=== PATIENT | female | born 2005 | race Caucasian/White ===

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

== ENCOUNTER 2024-11-04 10:11 | Emergency (ER) | payer MEDICAID ==
[~2024-11-04] VITALS: Ht 177.8 cm; Wt 63.6 kg
[~2024-11-04 10:11] MED LIST: PHEN-716 PO
[2024-11-04 10:18] VITALS: BP 102/60
--- NOTE | 2024-11-04 10:48 | Physician Documentation ---
History of Present Illness ~ Chief Complaint: Ankle pain Stated Complaint: L ANKLE PAIN Time Seen by MD: 10:24 Primary Medical Doctor: [facility] Source: patient Mode of Arrival: POV Exam Limitations: no limitations HPI 19-year-old female with complaints of left ankle pain after getting out of a lifted truck and twisting her left ankle. Patient does have pain and swelling to the ankle. Able to bear weight. Tetanus witin 5 years: Yes Medication Reconciliation Allergies: Coded Allergies: No Known Allergies (Unverified , 11/04/24) Scheduled Ibuprofen (Ibu), 1 TAB PO Q8H Phenazopyridine HCl (Pyridium), 1 TAB PO Q8H Past Medical History Past Medical History: No Pertinent History Past Surgical History: no surgical history Alcohol Use: None Drug Use: none Lives with: Family Lives In: Home Occupation: student Review of Systems All Other Systems at this time: Reviewed and Negative Physical Exam Vital Signs: RN Vital Signs have been reviewed: Yes, Temperature: 98.0, Source: Temporal, Heart Rate: 74, Respiratory Rate: 18, BP: 102/60, Pulse Oximetry: 98, Weight: 63.640 Physical Exam General: Alert, no apparent distress. Respiratory: Lungs clear, no respiratory distress. Chest: No accessory muscle use. Cardiovascular: Regular rate and rhythm, no murmurs. Extremities: Moderate swelling to the left ankle pain to the lateral malleolus no obvious deformity good pedal pulse. Neurologic: Oriented x4. Psychiatric: Normal mood and affect. Skin: Normal color, warm and dry. No edema, no ecchymosis. Progress Results/Orders Results/Orders Orders - FALLON GLOVER [employer]PUTER [employer]PERATIONS MANAGER Ankle, Complete(3vw Min) (11/04/24 10:22) Ortho Orders (11/04/24 ) Completed Orders - FALLON GLOVER [employer]PUT[employer]PERATIONS MANAGER Ankle, Complete(3vw Min) (11/04/24 10:22) Vital Signs 11/04/24 10:18 Temp 98.0 Pulse 74 Resp 18 B/P (MAP) 102/60 Pulse Ox 98 EKG/XRAY/CT/US/VASC/MRI Bone/Soft Tissue X-Ray (Ext.) : Additional Comment CLINICAL INDICATION: ankle pain TECHNIQUE: 3 radiographic views of the left ankle were obtained. Comparison: None FINDINGS/IMPRESSION: There is no evidence of acute fracture or dislocation. The visualized joint space is well maintained. The alignment is anatomical. There is no radiopaque foreign body. Medical Decision Making Findings X-ray to evaluate any osseous abnormality. Differentials include sprain versus fracture. X-ray ordered Departure Time of Disposition: 13:02 Disposition: 01 HOME / SELF CARE / HOMELESS Impression: Primary Impression: Sprain of ankle Condition: Stable Discharge Instructions: Ankle Sprain Additional Instructions: Your x-ray appears to be negative for any fracture. This is likely an ankle sprain. Use crutches and wear brace as needed follow up with primary care Referrals: NO PRIMARY CARE PROVIDER (PCP) Prescriptions Ibuprofen (Ibu) 800 Mg Tablet 1 TAB PO Q8H for 7 Days, #21 TAB 0 Refills Prov: FALLON GLOVER NP 11/04/24 Education Educated: Patient, Family Educated regarding: diagnosis, treatment, need for follow up Signature Scribe Signature: No scribe Attestation: The note accurately reflects work and decisions made by me.Fallon Glover - MARGY 11/04/24 10:43 FALLON GLOVER NP Nov 04, 2024 10:47
[2024-11-04] MEDS ORDERED: IBUP-864 PO (13:02)
--- NOTE | 2024-11-04 13:04 | RADIOLOGY REPORT ---
CLINICAL INDICATION: ankle pain TECHNIQUE: 3 radiographic views of the left ankle were obtained. Comparison: None FINDINGS/IMPRESSION: There is no evidence of acute fracture or dislocation. The visualized joint space is well maintained. The alignment is anatomical. There is no radiopaque foreign body.
[2024-11-04 13:33] VITALS: PULSE 90; RESP 16; TEMP 98; O2SAT 100
== END 2024-11-04 13:36 | disposition home or self-care (01) ==
LOC: ER 10:12
DX: S93.492A Sprain of other ligament of left ankle, initial encounter (principal); Z79.899 Other long term (current) drug therapy; X58.XXXA Exposure to other specified factors, initial encounter; Y93.89 Activity, other specified; Y92.89 Other specified places as the place of occurrence of the external cause; Y99.8 Other external cause status
CPT/HCPCS: 29515; 73610; 99284; L1930; 99283